=== PATIENT | male | born 1975 | race Caucasian/White ===

== ENCOUNTER 2016-11-21 12:23 | Emergency (ER) | payer MEDICARE, MEDICAID ==
[~2016-11-21] VITALS: Ht 180.3 cm; Wt 95.9 kg
[2016-11-21 12:38] VITALS: BP 110/74; PULSE 74; RESP 16; TEMP 98.6; O2SAT 98
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
[2016-11-21] MEDS ORDERED: ROBA750T PO (13:43)
[2016-11-21] MEDS ORDERED: NAPR500T PO (13:43)
[2016-11-21] MEDS: ORPHENADRINE INJ 60 MG/2 ML AMP IM ONE (13:51)
[2016-11-21] MEDS: KETOROLAC TROMETHAMINE 60 MG/2 ML (IM) VIAL IM ONE (13:51)
[2016-11-21 15:09] VITALS: RESP 16
[2016-11-21] MEDS: LORazepam 1 MG TAB PO ONE (15:09)
[2016-11-21] MEDS ORDERED: HYDR-3533 PO (22:07)
== END 2016-11-21 15:15 | disposition home or self-care (01) ==
LOC: PHEFT 12:23
DX: M54.6 Pain in thoracic spine (principal); F41.8 Other specified anxiety disorders; F20.9 Schizophrenia, unspecified; F17.210 Nicotine dependence, cigarettes, uncomplicated; F31.9 Bipolar disorder, unspecified
CPT/HCPCS: 96372; J1885; J2360

== ENCOUNTER 2016-11-21 19:44 | Emergency (ER) | payer MEDICARE, MEDICAID ==
[~2016-11-21] VITALS: Ht 180.3 cm; Wt 97.2 kg
[~2016-11-21 19:44] MED LIST: NAPR500T PO; ROBA750T PO
[2016-11-21 20:44] VITALS: BP 100/72; PULSE 69; RESP 18; TEMP 98; O2SAT 99
[2016-11-21] MEDS ORDERED: HYDR-3533 PO (22:07)
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
[2016-11-21] MEDS ORDERED: ACETAMINOPHEN/HYDROcodone 325 MG/5 MG TAB PO ONE (22:15)
[2016-11-21 22:42] VITALS: RESP 18
[2016-11-21 22:48] VITALS: BP 112/68
== END 2016-11-21 22:50 | disposition home or self-care (01) ==
LOC: PHED 19:44
DX: M54.6 Pain in thoracic spine (principal); F41.8 Other specified anxiety disorders; F31.9 Bipolar disorder, unspecified; F20.9 Schizophrenia, unspecified
CPT/HCPCS: 96372; 99283; J1885; J2360

== ENCOUNTER 2017-01-21 14:23 | Emergency (ER) | payer MEDICARE, MEDICAID ==
[~2017-01-21 14:23] MED LIST changes: +HYDR-3533 PO
== END 2017-01-21 14:29 | disposition left against medical advice (07) ==
LOC: NED 14:23
DX: L98.9 Disorder of the skin and subcutaneous tissue, unspecified (principal)
CPT/HCPCS: 99281

== ENCOUNTER 2017-05-29 09:33 | Emergency (ER) | payer MEDICARE, MEDICAID ==
[~2017-05-29] VITALS: Ht 182.9 cm; Wt 95.0 kg
[2017-05-29 09:36] VITALS: BP 125/73; PULSE 89; RESP 15; TEMP 98.4; O2SAT 98
[2017-05-29] MEDS ORDERED: PENI250T PO (10:16)
[2017-05-29] MEDS ORDERED: NAPR500 PO (10:16)
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
== END 2017-05-29 10:25 | disposition home or self-care (01) ==
LOC: NEPK 09:33
DX: K08.89 Other specified disorders of teeth and supporting structures (principal)
CPT/HCPCS: 99284

== ENCOUNTER 2017-06-01 17:36 | Emergency (ER) | payer MEDICARE, MEDICAID ==
[~2017-06-01 17:36] MED LIST changes: +NAPR500 PO; +PENI250T PO
[2017-06-01 17:39] VITALS: BP 127/77; PULSE 78; RESP 20; TEMP 97.8; O2SAT 97
[2017-06-01] MEDS ORDERED: GABA100C4 PO ×2 (17:53→18:45)
[2017-06-01] MEDS ORDERED: DEPA500T PO (17:53)
[2017-06-01] MEDS ORDERED: HALO5TAB PO (17:53)
[2017-06-01] MEDS ORDERED: RISP3 PO (17:53)
[2017-06-01] MEDS ORDERED: IBUP-232 PO (18:45)
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
== END 2017-06-01 19:05 | disposition home or self-care (01) ==
LOC: PHED 17:36 → PHEFT 19:05
DX: K08.89 Other specified disorders of teeth and supporting structures (principal); G62.9 Polyneuropathy, unspecified; E78.00 Pure hypercholesterolemia, unspecified; F17.200 Nicotine dependence, unspecified, uncomplicated; Z76.0 Encounter for issue of repeat prescription; Z87.39 Personal history of other diseases of the musculoskeletal system and connective tissue; Z86.59 Personal history of other mental and behavioral disorders; Z85.828 Personal history of other malignant neoplasm of skin
CPT/HCPCS: 99281

== ENCOUNTER 2017-06-03 20:01 | Emergency (ER) | payer MEDICARE, MEDICAID ==
[~2017-06-03] VITALS: Ht 182.9 cm; Wt 89.9 kg
[~2017-06-03 20:01] MED LIST changes: +DEPA500T PO; +GABA100C4 PO; +HALO5TAB PO; -HYDR-3533 PO; +IBUP-232 PO; -NAPR500T PO; +RISP3 PO
[2017-06-03 20:35] VITALS: BP 117/73; PULSE 79; RESP 14; TEMP 98.3; O2SAT 99
[2017-06-03] MEDS ORDERED: NAPR500 PO (21:25)
[2017-06-03] MEDS ORDERED: ORPH100T99 PO (21:25)
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
[2017-06-03] MEDS ORDERED: ACETAMINOPHEN/HYDROcodone 325 MG/5 MG TAB PO ONE (21:30)
== END 2017-06-03 21:49 | disposition home or self-care (01) ==
LOC: PHED 20:01
DX: M54.5 Low back pain (principal); G89.29 Other chronic pain
CPT/HCPCS: 99283

== ENCOUNTER 2017-06-08 11:34 | Emergency (ER) | payer MEDICARE, MEDICAID ==
[~2017-06-08] VITALS: Ht 180.3 cm; Wt 97.0 kg
[~2017-06-08 11:34] MED LIST changes: +HYDR-3533 PO; +NAPR500T PO; +ORPH100T99 PO
[2017-06-08 11:43] VITALS: BP 116/71; PULSE 76; RESP 18; TEMP 97.6; O2SAT 98
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
[2017-06-08 12:09] LABS: AUTOMATED NEUTROPHIL # 5.7 TH/MM3 (1.8-7.7); BASOPHIL % 0.5 % (0.0-2.0); EOSINOPHIL # 0.3 TH/MM3 (0-0.4); EOSINOPHIL % 3.5 % (0.0-4.0); HEMATOCRIT 43.1 % (39.0-51.0); HEMO FLAGS DIFF FINAL; LYMPH % 30.2 % (9.0-44.0); LYMPHOCYTE # 2.9 TH/MM3 (1.0-4.8); MEAN CELL VOLUME 84.3 FL (80.0-100.0); MEAN CORPUSCULAR HGB CONC 34.4 % (32.0-36.0); MONO % 8.3 % (0.0-8.0); NEUT % 57.5 % (16.0-70.0); PLATELET COUNT 252 TH/MM3 (150-450); RED BLOOD COUNT 5.11 MIL/MM3 (4.50-5.90); WHITE BLOOD COUNT 9.7 TH/MM3 (4.0-11.0)
[2017-06-08 12:17] LABS: AMPHETAMINE, URINE NEG (NEG); BARBITURATES, URINE NEG (NEG); CHLORIDE 105 MEQ/L (98-107); COCAINE, URINE POS (NEG); POTASSIUM 3.5 MEQ/L (3.5-5.1); SODIUM (NA) 137 MEQ/L (136-145)
[2017-06-08 12:20] LABS: ANION GAP 6 MEQ/L (5-15); BICARBONATE 26.4 MEQ/L (21.0-32.0); BLOOD UREA NITROGEN 10 MG/DL (7-18)
[2017-06-08 12:23] LABS: GLOMERULAR FILTRATION RATE 93 ML/MIN (>89)
[2017-06-08 13:50] VITALS: BP 117/62
[2017-06-09 02:16] VITALS: BP 121/61; PULSE 66; RESP 16; O2SAT 97
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
== END 2017-06-09 10:25 | disposition home or self-care (01) ==
LOC: PHED 11:34 → NEPJ 06-09 10:25
DX: F19.10 Other psychoactive substance abuse, uncomplicated (principal); F20.9 Schizophrenia, unspecified; Z76.5 Malingerer [conscious simulation]; F17.210 Nicotine dependence, cigarettes, uncomplicated; Z59.0 Homelessness
CPT/HCPCS: 80048; 80307; 85025; 99284

== ENCOUNTER 2017-07-26 10:18 | Emergency (ER) | payer MEDICARE, MEDICAID ==
[~2017-07-26] VITALS: Ht 180.3 cm; Wt 91.0 kg
[~2017-07-26 10:18] MED LIST changes: -HYDR-3533 PO; -IBUP-232 PO; -NAPR500 PO; -NAPR500T PO; -ORPH100T99 PO; -PENI250T PO; -ROBA750T PO
[2017-07-26 10:26] VITALS: BP 109/63; PULSE 83; RESP 16; TEMP 98.2; O2SAT 98
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
[2017-07-26] MEDS ORDERED: GABA300C5 PO (11:30)
== END 2017-07-26 11:41 | disposition home or self-care (01) ==
LOC: NEPK 10:18
DX: Z76.0 Encounter for issue of repeat prescription (principal)
CPT/HCPCS: 99281